=== PATIENT | female | born 1990 | race African-American/Black ===

== ENCOUNTER 2017-06-29 13:40 | Emergency (ER) | payer MEDICAID ==
[~2017-06-29] VITALS: Ht 165.1 cm; Wt 103.0 kg
[2017-06-29 13:48] VITALS: BP 124/76
[2017-06-29] MEDS ORDERED: IBUPROFEN 200MG TABLET ONE (14:00)
== END 2017-06-29 14:30 | disposition home or self-care (01) ==
LOC: ER 14:12
DX: S39.012A Strain of muscle, fascia and tendon of lower back, initial encounter (principal); F17.200 Nicotine dependence, unspecified, uncomplicated; F12.10 Cannabis abuse, uncomplicated; V89.2XXA Person injured in unspecified motor-vehicle accident, traffic, initial encounter; Y93.89 Activity, other specified; Y92.89 Other specified places as the place of occurrence of the external cause; Y99.8 Other external cause status
CPT/HCPCS: 99282

== ENCOUNTER 2020-12-09 12:37 | Emergency (ER) | payer MEDICAID ==
[~2020-12-09] VITALS: Ht 167.6 cm; Wt 85.0 kg
[2020-12-09 12:50] VITALS: BP 146/75
[2020-12-09] MEDS ORDERED: IBUPROFEN 600MG TABLET PO STA (14:02)
[2020-12-09] MEDS ORDERED: NAPR-681 PO (15:05)
== END 2020-12-09 14:57 | disposition left against medical advice (07) ==
LOC: ER 12:37
DX: M25.561 Pain in right knee (principal)
CPT/HCPCS: 73562; 99283